=== PATIENT | female | born 1940 | race Caucasian/White ===

== ENCOUNTER 2018-04-17 13:52 | Inpatient (IN) ==
--- NOTE | 2018-04-17 14:13 | Emergency Department Note ---
Disposition Clinical Impression: Diverticulitis Abdominal pain Qualifiers: Abdominal location: left lower quadrant Qualified Code(s): R10.32 - Left lower quadrant pain Disposition: Admitted As Inpatient Condition: Undetermined Referrals: Sasha Celaya CNP [Primary Care Provider] - Forms: ED Satisfaction Letter Time of Disposition: 16:26 General Adult HPI - General Chief complaint: ED Recheck/Abnormal Lab/Rx Stated complaint: "diverticulitis sent by " Time Seen by Provider: 04/17/18 13:58 Source: patient Mode of arrival: ambulatory Limitations: no limitations Nursing Notes Reviewed: Yes Vital Signs Reviewed: Yes - History of Present Illness HPI Narrative: 78-year-old female with history of colectomy associated with colon cancer, slade fundoplication, hysterectomy, tubal ligation, arrives to the emergency department after being diagnosed 2 days ago with diverticulitis without abscess. No perforation noted. The patient was started on Cipro and Flagyl at that time. In addition the patient was diagnosed with a "bladder infection". The patient went to her primary care office today and was told to come to [facility] emergency department for admission by general surgery. The patient is complaining of left lower quadrant abdominal pain but it is not any worse than it was 2 days ago. The patient is taking a medication as prescribed. She does state that she has had some constipation since then but does note that the patient is taking oxycodone. Patient denies any nausea, vomiting, dysuria. The patient was noted by Dr. Looney in surgery to need a CT abdomen and pelvis with concern for obstruction. Pain Scale: 6 - Related Data Home Medications Medication Instructions Recorded Confirmed Biotin 1 mg PO DAILY 04/28/17 04/28/17 Cholecalciferol (Vitamin D3) 5,000 unit PO DAILY 04/28/17 04/28/17 [Vitamin D3] Colesevelam HCl [Welchol] 1,875 mg PO BID 04/28/17 04/28/17 Etodolac [Lodine] 400 mg PO TID 04/28/17 04/28/17 Levothyroxine Sodium [Levoxyl] 50 mcg PO DAILY 04/28/17 04/28/17 Lisinopril [Zestril] 20 mg PO DAILY 04/28/17 04/28/17 Meclizine [Antivert] 12.5 mg PO QID PRN 04/28/17 04/28/17 Omeprazole 41 mg PO DAILY 04/28/17 04/28/17 Trazodone HCl 200 mg PO HS 04/28/17 04/28/17 Venlafaxine XR (24 HR) [Effexor XR] 225 mg PO DAILY 04/28/17 04/28/17 Previous Rx's Medication Instructions Recorded Venlafaxine XR (24 HR) [Effexor XR] 225 mg PO DAILY #42 cap.er.24h 04/28/17 Ciprofloxacin HCl [Cipro] 500 mg PO BID #20 tablet 04/15/18 OxyCODONE/APAP 5/325 [Percocet 1 each PO Q6HR PRN 5 Days #15 04/15/18 5/325 MG] tablet metroNIDAZOLE [Flagyl] 500 mg PO TID 10 Days #30 tablet 04/15/18 Allergies Allergy/AdvReac Type Severity Reaction Status Date / Time codeine Allergy See Verified 04/28/17 10:54 Comments Sulfa (Sulfonamide Allergy Hives Verified 04/28/17 11:01 Antibiotics) All systems ED: reviewed and negative except as stated. Constitutional: Denies: fever, chills, weakness ENT ED: Denies: congestion Cardiovascular: Denies: chest pain Respiratory: Denies: dyspnea Gastrointestinal: Reports: abdominal pain, nausea, constipation. Denies: vomiting, diarrhea, hematemesis, melena, hematochezia Genitourinary: Denies: urgency, dysuria Musculoskeletal: Denies: back pain, neck pain, arthralgia, myalgia Integumentary: Denies: rash Neurological: Denies: headache Past Medical History - Past Medical History Attestation: Yes The following information was validated with the patient. 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 - Social History Smoking Status: Never smoker Smokeless Tobacco Status: No Alcohol use: Reports: none Drug use: Reports: none Physical Exam - General Limitations: no limitations General appearance: alert, in no apparent distress - Head Head exam: atraumatic, normocephalic, normal inspection - Eye Eye exam: Present: normal appearance, PERRL, EOMI - ENT ENT exam: normal exam, normal oropharynx, mucous membranes moist - Neck Neck exam: Present: normal inspection, full ROM, trachea midline - Chest Chest inspection: Present: normal inspection, symmetric chest wall rise - Respiratory Respiratory exam: Present: normal lung sounds bilaterally - Cardiovascular Cardiovascular exam: Present: regular rate, normal rhythm, normal heart sounds - Abdominal Exam Abdominal exam: Present: soft, tenderness (LLQ), scar. Absent: distention, guarding, rebound, rigidity, heel tap sign, Quintero's sign, Rovsing's sign, tenderness at McBurney's Point, pulsatile mass, hernia - Extremities Exam Extremities exam: Present: normal inspection, full ROM. Absent: tenderness, pedal edema - Neurological Exam Neurological exam: Present: alert, oriented X3 - Skin Skin exam: Present: warm, dry, intact, normal color Course Vital Signs Temperature 98.3 F 04/17/18 13:54 Pulse Rate 98 04/17/18 13:54 Respiratory Rate 18 04/17/18 13:54 Blood Pressure 113/65 04/17/18 13:54 O2 Sat by Pulse Oximetry 95 04/17/18 13:54 Temperature 98.3 F 04/17/18 14:43 Pulse Rate 98 04/17/18 14:43 Respiratory Rate 18 04/17/18 14:43 Blood Pressure 113/65 04/17/18 14:43 O2 Sat by Pulse Oximetry 95 04/17/18 14:43 Oxygen Delivery Oxygen Delivery Room Air Medical Decision Making - [facility] Narrative Medical decision making narrative: Patient's lab work demonstrates no acute process. The patient initially refused CT scan. The patient is now accepting it. After speaking with Dr. Looney in surgery he requested that we admit the patient to his service. CT is currently pending. She will be admitted at this time. - Medical Records Medical records reviewed: Yes I reviewed the patient's medical records. - Lab Data Lab results reviewed: Yes I reviewed the patient's lab results. Result diagrams: 04/17/18 14:30 04/17/18 14:30 Lab Results 04/17/18 04/17/18 Range/Units 14:30 14:30 WBC 9.9 (4.3-11.1) K/mcL RBC 4.51 (3.82-4.97) M/mcL Hgb 13.6 (11.5-15.4) g/dL Hct 40.1 (35.3-44.9) % MCV 88.9 (83.0-100.0) fL MCH 30.2 (28.0-33.3) pg MCHC 33.9 (31.6-35.5) g/dL RDW 13.8 (11.5-14.5) % Plt Count 215 (140-400) K/mcL MPV 9.7 (9.4-12.4) fL Immature Gran % 0.9 (0-4) % Seg Neutrophils % 62.2 % Lymphocytes % 23.9 % Monocytes % 9.4 % Eosinophils % 3.0 % Basophils % 0.6 % Neutrophils # 6.2 (1.6-8.9) K/mcL Lymphocytes # 2.4 (0.6-4.6) K/mcL Monocytes # 0.9 (0.0-1.3) K/mcL Eosinophils # 0.3 (0.0-0.6) K/mcL Basophils # 0.1 (0.0-0.2) K/mcL Sodium 136 (136-145) mEq/L Potassium 4.0 (3.5-5.1) mEq/L Chloride 103 (98-107) mEq/L Carbon Dioxide 23 (23-29) mEq/L BUN 11 (8-23) mg/dL Creatinine 0.88 (0.60-1.20) mg/dL Est GFR ( Amer) > 60 (> 60) Est GFR (Non-Af Amer) > 60 (> 60) BUN/Creatinine Ratio 13 (6-26) Glucose 96 (70-105) mg/dL Calculated Osmolality 281 (280-300) Calcium 9.2 (8.6-10.3) mg/dL - EKG Data EKG #1 EKG attestation: Yes I reviewed and interpreted this EKG. EKG results narrative: Heart rate 84 beats for minute. Normal sinus rhythm. No ST elevation or ST depression noted.
[2018-04-17] MEDS ORDERED: Isovue-370 500 ML INFUS..BTL IV ONE ×2 (14:15→18:58)
--- NOTE | 2018-04-17 14:18 | Emergency Department Note ---
Disposition Clinical Impression: Diverticulitis Abdominal pain Qualifiers: Abdominal location: left lower quadrant Qualified Code(s): R10.32 - Left lower quadrant pain Disposition: Admitted As Inpatient Condition: Undetermined General Adult HPI - General Chief complaint: ED Recheck/Abnormal Lab/Rx Stated complaint: "diverticulitis sent by " Time Seen by Provider: 04/17/18 13:58 - History of Present Illness Pain Scale: 6 - Related Data Home Medications Medication Instructions Recorded Confirmed Biotin 1 mg PO DAILY 04/28/17 04/17/18 Cholecalciferol (Vitamin D3) 5,000 unit PO DAILY 04/28/17 04/17/18 [Vitamin D3] Colesevelam HCl [Welchol] 1,875 mg PO BID 04/28/17 04/17/18 Levothyroxine Sodium [Levoxyl] 50 mcg PO DAILY 04/28/17 04/17/18 Lisinopril [Zestril] 20 mg PO DAILY 04/28/17 04/17/18 Trazodone HCl 200 mg PO HS 04/28/17 04/17/18 Previous Rx's Medication Instructions Recorded Venlafaxine XR (24 HR) [Effexor XR] 225 mg PO DAILY #42 cap.er.24h 04/28/17 Allergies Allergy/AdvReac Type Severity Reaction Status Date / Time codeine Allergy See Verified 04/28/17 10:54 Comments Sulfa (Sulfonamide Allergy Hives Verified 04/28/17 11:01 Antibiotics) Past Medical History - Past Medical History Medical history: Reports: GERD, hypertension Psychiatric history: Reports: depression - Social History Smoking Status: Never smoker Smokeless Tobacco Status: No Alcohol use: Reports: none Drug use: Reports: none Course Vital Signs Temperature 98.3 F 04/17/18 13:54 Pulse Rate 98 04/17/18 13:54 Respiratory Rate 18 04/17/18 13:54 Blood Pressure 113/65 04/17/18 13:54 O2 Sat by Pulse Oximetry 95 04/17/18 13:54 Temperature 98.3 F 04/17/18 14:43 Pulse Rate 98 04/17/18 14:43 Respiratory Rate 18 04/17/18 17:13 Blood Pressure 160/88 04/17/18 17:13 O2 Sat by Pulse Oximetry 95 04/17/18 14:43 Oxygen Delivery Oxygen Delivery Room Air Medical Decision Making - Lab Data Result diagrams: 04/17/18 14:30 04/17/18 14:30 Lab Results 04/17/18 04/17/18 Range/Units 14:30 14:30 WBC 9.9 (4.3-11.1) K/mcL RBC 4.51 (3.82-4.97) M/mcL Hgb 13.6 (11.5-15.4) g/dL Hct 40.1 (35.3-44.9) % MCV 88.9 (83.0-100.0) fL MCH 30.2 (28.0-33.3) pg MCHC 33.9 (31.6-35.5) g/dL RDW 13.8 (11.5-14.5) % Plt Count 215 (140-400) K/mcL MPV 9.7 (9.4-12.4) fL Immature Gran % 0.9 (0-4) % Seg Neutrophils % 62.2 % Lymphocytes % 23.9 % Monocytes % 9.4 % Eosinophils % 3.0 % Basophils % 0.6 % Neutrophils # 6.2 (1.6-8.9) K/mcL Lymphocytes # 2.4 (0.6-4.6) K/mcL Monocytes # 0.9 (0.0-1.3) K/mcL Eosinophils # 0.3 (0.0-0.6) K/mcL Basophils # 0.1 (0.0-0.2) K/mcL Sodium 136 (136-145) mEq/L Potassium 4.0 (3.5-5.1) mEq/L Chloride 103 (98-107) mEq/L Carbon Dioxide 23 (23-29) mEq/L BUN 11 (8-23) mg/dL Creatinine 0.88 (0.60-1.20) mg/dL Est GFR ( Amer) > 60 (> 60) Est GFR (Non-Af Amer) > 60 (> 60) BUN/Creatinine Ratio 13 (6-26) Glucose 96 (70-105) mg/dL Calculated Osmolality 281 (280-300) Calcium 9.2 (8.6-10.3) mg/dL Attestation Statement - Attestation Attestation: I examined this patient and my medical decision-making was reviewed with the MINT WAFER DEPOSITOR/PA/Advanced Practice Nurse/Resident Physician. I agree with the documented findings, disposition and treatment plan as described except to the extent set forth below. The patient has left lower quadrant pain and had a CT scan 2 days ago showed diverticulitis without perforation and I did review the CT scan report. I did see the patient spoke with her and examined her and does have moderate left lower quadrant pain but soft and the patient has been using ciprofloxacin and Flagyl. Discussion with Dr. Saldivar we will get a oral and IV contrast CT scan here and patient will be reassessed after the results of the scan and laboratory evaluation. She is ambulatory and nontoxic in appearance. 1420 I did review the patient's EKG showing normal sinus rhythm with a rate of 84 and without acute ischemic change 1458
[2018-04-17 15:11] LABS: Basophils # 0.1 K/mcL (0.0-0.2); Basophils % 0.6 %; Eosinophils # 0.3 K/mcL (0.0-0.6); Hematocrit 40.1 % (35.3-44.9); Hemoglobin 13.6 g/dL (11.5-15.4); Immature Granulocytes % 0.9 % (0-4); Lymphocytes # 2.4 K/mcL (0.6-4.6); Lymphocytes % 23.9 %; Mean Corpuscular HGB Conc 33.9 g/dL (31.6-35.5); Mean Corpuscular Hemoglobin 30.2 pg (28.0-33.3); Mean Corpuscular Volume 88.9 fL (83.0-100.0); Mean Platelet Volume 9.7 fL (9.4-12.4); Monocytes # 0.9 K/mcL (0.0-1.3); Monocytes % 9.4 %; Neutrophils # 6.2 K/mcL (1.6-8.9); Platelet Count 215 K/mcL (140-400); Red Blood Count 4.51 M/mcL (3.82-4.97); Red Cell Distribution Width 13.8 % (11.5-14.5); Segmented Neutrophils % 62.2 %
[2018-04-17 15:29] LABS: BUN/Creatinine Ratio 13 (6-26); Blood Urea Nitrogen 11 mg/dL (8-23); Calcium 9.2 mg/dL (8.6-10.3); Carbon Dioxide 23 mEq/L (23-29); Chloride 103 mEq/L (98-107); Glucose 96 mg/dL (70-105); Osmolality,Calculated 281 (280-300); Sodium 136 mEq/L (136-145); eGFR For African Americans > 60 (> 60); eGFR For Non-African Americans > 60 (> 60)
--- NOTE | 2018-04-17 16:52 | General Surg History&Physical ---
Date of Encounter: 04/17/18 Time of Encounter: 16:51 Assessment and Plan (1) Diverticulitis Current Visit: Yes Status: Acute 78F with Hinchey class I diverticulitis; non septic; NPO IVF abx repeat CT scan to assess for progression no acute surgery at present; The assessment and plan as outlined above was discussed with the patient and/or family members who expressed understanding and agreement. All questions were answered. History of Present Illness Chief complaint: abdominal pain HPI: Ms. Mckeon is a 78 year old female h/o GERD, HTN, prior colon cancer s/p resection; s/p slade s/p hysterectomy and tubal ligation who presents with 2- 3 day history of abdominal pain. patient states that she has had episodes similar to this in the past, but this is by far the worst episode. per the patient, the pain 'knocked her to her knees" The pain is localized to the LLQ with associated nausea and anorexia. No reports of fevers, chills, chest pain nor shortness of breath. She was started on appropriate outpatient antibiotics two days ago, but presents to the ED with continued pain; She did have a CT scan, which was reviewed and interpreted by me, which demonstrated diverticulosis with associated inflammation and edema, but no abscess nor free air. Past Med Surg Social Fam HX - Past Medical History Medical history: GERD, hypertension, other (hypothyroidism) Additional medical history: episodes of dizziness Psychiatric history: depression - Past Surgical History Surgical History: colectomy, hysterectomy Additional surgical history: COLON RESECTION - Social History Smoking Status: Never smoker Smokeless Tobacco Status: No Alcohol use: none Drug use: none - Additional Family History Additional family history: non contributory Medications and Allergies Biotin 1 mg PO DAILY 04/28/17 [History] Cholecalciferol (Vitamin D3) [Vitamin D3] 5,000 unit PO DAILY 04/28/17 [History] Colesevelam HCl [Welchol] 1,875 mg PO BID 04/28/17 [History] Levothyroxine Sodium [Levoxyl] 50 mcg PO DAILY 04/28/17 [History] Lisinopril [Zestril] 20 mg PO DAILY 04/28/17 [History] Trazodone HCl 200 mg PO HS 04/28/17 [History] Venlafaxine XR (24 HR) [Effexor XR] 225 mg PO DAILY #42 cap.er.24h 04/28/17 [Rx] 3 Allergy/AdvReac Type Severity Reaction Status Date / Time codeine Allergy See Verified 04/28/17 10:54 Comments Sulfa (Sulfonamide Allergy Hives Verified 04/28/17 11:01 Antibiotics) Review of Systems All systems PM: The remainder of the systems were reviewed and are negative General Surgery Exam Initial Vital Signs Temp Pulse Resp BP Pulse Ox 98.3 F 98 18 113/65 95 04/17/18 13:54 04/17/18 13:54 04/17/18 13:54 04/17/18 13:54 04/17/18 13:54 - General physical appearance no distress - Eyes normal ocular movement - ENT normocephalic - Neck no lymphadectomy - Respiratory normal expansion, normal respiratory effort - Cardiovascular Cardiovascular exam: Present: RRR - Abdomen Abdomen general surgery: Present: soft, tender, surgical scars Abdominal Tenderness: Present: LLQ (non peritoneal) - Integumentary Integumentary general surgery: Present: warm and dry - Neurologic Present: CN 2-12 grossly intact - Musculoskeletal Present: normal posture - Psychiatric Psychiatric general surgery: Present: A&Ox3 Results - Labs 04/17/18 14:30 04/17/18 14:30 Diabetes panel 04/17/18 Range/Units 14:30 Sodium 136 (136-145) mEq/L Potassium 4.0 (3.5-5.1) mEq/L Chloride 103 (98-107) mEq/L Carbon Dioxide 23 (23-29) mEq/L BUN 11 (8-23) mg/dL Creatinine 0.88 (0.60-1.20) mg/dL Glucose 96 (70-105) mg/dL Calcium 9.2 (8.6-10.3) mg/dL Calcium panel 04/17/18 Range/Units 14:30 Calcium 9.2 (8.6-10.3) mg/dL Pituitary panel 04/17/18 Range/Units 14:30 Sodium 136 (136-145) mEq/L Potassium 4.0 (3.5-5.1) mEq/L Chloride 103 (98-107) mEq/L Carbon Dioxide 23 (23-29) mEq/L BUN 11 (8-23) mg/dL Creatinine 0.88 (0.60-1.20) mg/dL Glucose 96 (70-105) mg/dL Calcium 9.2 (8.6-10.3) mg/dL Adrenal panel 04/17/18 Range/Units 14:30 Sodium 136 (136-145) mEq/L Potassium 4.0 (3.5-5.1) mEq/L Chloride 103 (98-107) mEq/L Carbon Dioxide 23 (23-29) mEq/L BUN 11 (8-23) mg/dL Creatinine 0.88 (0.60-1.20) mg/dL Glucose 96 (70-105) mg/dL Calcium 9.2 (8.6-10.3) mg/dL All other labs normal. - Imaging CT scan - abdomen: report reviewed, image reviewed CT scan - pelvis: report reviewed, image reviewed
[2018-04-17] MEDS ORDERED: Ondansetron ODT 4 MG TAB.RAPDIS SL PRN (17:00)
[2018-04-17] MEDS: 0.9 % Sodium Chloride 1,000 ML IVC SCH (18:10)
[2018-04-17] MEDS: OXYCODONE Oral CONC 10 MG/0.5 ML ORAL.SYG SL PRN (18:16)
[2018-04-18] MEDS: Piperacillin/Tazobactam 3.375 GM in 0.9 % Sodium Chloride Mini Bag 100 ML IVPB SCH ×3 (00:02→16:51)
[2018-04-18] MEDS: OXYCODONE Oral CONC 10 MG/0.5 ML ORAL.SYG SL PRN (00:03)
[2018-04-18 01:55] LABS: Basophils # 0.1 K/mcL (0.0-0.2); Basophils % 0.9 %; Eosinophils # 0.3 K/mcL (0.0-0.6); Hematocrit 38.5 % (35.3-44.9); Immature Granulocytes % 1.2 % (0-4); Lymphocytes # 1.7 K/mcL (0.6-4.6); Lymphocytes % 21.3 %; Mean Corpuscular HGB Conc 33.8 g/dL (31.6-35.5); Mean Corpuscular Hemoglobin 29.3 pg (28.0-33.3); Mean Corpuscular Volume 86.9 fL (83.0-100.0); Mean Platelet Volume 9.7 fL (9.4-12.4); Monocytes # 0.7 K/mcL (0.0-1.3); Monocytes % 9.1 %; Neutrophils # 5.2 K/mcL (1.6-8.9); Platelet Count 215 K/mcL (140-400); Red Blood Count 4.43 M/mcL (3.82-4.97); Red Cell Distribution Width 13.7 % (11.5-14.5); Segmented Neutrophils % 63.5 %
[2018-04-18] MEDS: 0.9 % Sodium Chloride 1,000 ML IVC SCH (05:30)
[2018-04-18] MEDS: *HR* Enoxaparin 40 MG/0.4 ML SYRINGE SQ SCH (05:31)
[2018-04-18] MEDS: Acetaminophen/Aspirin/Caffeine TABLET PO PRN (10:44)
[2018-04-18] MEDS ORDERED: Potassium Chloride 40 MEQ in D5% in 0.45% NACL 1,000 ML IVC SCH (10:45)
[2018-04-18] MEDS ORDERED: D5% in 0.45% NACL w KCl 20 MEQ/1,000 ML MLS IVC SCH (10:45)
--- NOTE | 2018-04-18 11:34 | General Surgery Progress Note ---
Date of Encounter: 04/18/18 Time of Encounter: 11:33 - Assessment and Plan (1) Diverticulitis Current Visit: Yes Status: Acute 78F with persistent diverticulitis; non septic cont abx okay for ice chips activity as tolerated will reassess in AM; possible diet in AM Subjective Patient reports: no new complaints, feels better, still having pain, pain is less Objective Vital Signs - Last 8 Hours Temp Pulse Resp BP Pulse Ox 04/18/18 11:06 98.4 F 77 14 149/83 93 04/18/18 06:36 97.9 F 76 16 132/73 92 Intake and Output 04/17/18 04/18/18 04/18/18 23:59 07:59 15:59 Intake Total 0 / 0 900 / 900 100 / 100 Output Total 0 / 0 0 / 0 700 / 700 Balance 0 / 0 900 / 900 -600 / -600 Intake: IV Fluids 900 / 900 100 / 100 0.9 % Sodium Chloride 1,000 ML 800 / 800 @ 125 mls/hr IVC .Q8H [facility] Rx#: [id number] Zosyn 3.375 GM In 0.9 % Sodium 100 / 100 100 / 100 Chloride (Mini-Bag +) 100 ML @ 25 mls/hr IVPB Q8HR [facility] Rx#: [id number] Oral 0 / 0 0 / 0 Output: Urine 0 / 0 0 / 0 700 / 700 Other: Meal NPO for breakfast # Voids 1 Weight 73.2 kg Blood Glucose* 105 96 117 Patient Weight 04/18/18 23:59 Weight 73.2 kg - General physical appearance no distress - Respiratory normal expansion, normal respiratory effort - Cardiovascular Cardiovascular exam: Present: RRR - Abdomen Abdomen: Present: soft, tender Abdominal Tenderness: LLQ - Neurologic CN 2-12 grossly intact - Musculoskeletal normal posture - Psychiatric oriented to time, oriented to person, oriented to place - Labs 04/18/18 01:38 04/17/18 14:30 Consult Discharge Plan - Plan Referrals: Sasha Celaya, SHIPPING AND RECEIVING ASSISTANT [Primary Care Provider] -
[2018-04-18 13:23] LABS: BUN/Creatinine Ratio 11 (6-26); Blood Urea Nitrogen 9 mg/dL (8-23); Calcium 8.9 mg/dL (8.6-10.3); Carbon Dioxide 25 mEq/L (23-29); Chloride 105 mEq/L (98-107); Glucose 118 mg/dL (70-105); Osmolality,Calculated 286 (280-300); Phosphorous 2.8 mg/dL (2.7-4.5); Potassium 4.1 mEq/L (3.5-5.1); Sodium 138 mEq/L (136-145); eGFR For African Americans > 60 (> 60); eGFR For Non-African Americans > 60 (> 60)
[2018-04-18] MEDS: Venlafaxine XR (24 HR) 75 MG CAP.ER.24H PO SCH (14:10)
[2018-04-18] MEDS: Lisinopril 20 MG TABLET PO SCH (14:11)
[2018-04-18] MEDS: 0.9 % Sodium Chloride w KCl 20 MEQ/1,000 ML MLS IVC SCH (21:10)
[2018-04-18] MEDS: traZODone 50 MG TABLET PO SCH (21:37)
[2018-04-19] MEDS: Piperacillin/Tazobactam 3.375 GM in 0.9 % Sodium Chloride Mini Bag 100 ML IVPB SCH ×3 (00:42→17:02)
[2018-04-19] MEDS: 0.9 % Sodium Chloride w KCl 20 MEQ/1,000 ML MLS IVC SCH ×2 (04:38→15:21)
[2018-04-19 04:59] LABS: Basophils # 0.1 K/mcL (0.0-0.2); Basophils % 0.8 %; Eosinophils # 0.3 K/mcL (0.0-0.6); Eosinophils % 3.9 %; Hematocrit 39.6 % (35.3-44.9); Hemoglobin 13.3 g/dL (11.5-15.4); Immature Granulocytes % 0.5 % (0-4); Lymphocytes # 1.2 K/mcL (0.6-4.6); Lymphocytes % 19.1 %; Mean Corpuscular HGB Conc 33.6 g/dL (31.6-35.5); Mean Corpuscular Hemoglobin 29.8 pg (28.0-33.3); Mean Corpuscular Volume 88.8 fL (83.0-100.0); Mean Platelet Volume 9.7 fL (9.4-12.4); Monocytes # 0.7 K/mcL (0.0-1.3); Neutrophils # 4.2 K/mcL (1.6-8.9); Platelet Count 222 K/mcL (140-400); Red Blood Count 4.46 M/mcL (3.82-4.97); Red Cell Distribution Width 13.4 % (11.5-14.5); Segmented Neutrophils % 64.7 %
[2018-04-19 05:21] LABS: BUN/Creatinine Ratio 11 (6-26); Blood Urea Nitrogen 8 mg/dL (8-23); Calcium 8.8 mg/dL (8.6-10.3); Carbon Dioxide 25 mEq/L (23-29); Chloride 109 mEq/L (98-107); Glucose 92 mg/dL (70-105); Osmolality,Calculated 288 (280-300); Sodium 140 mEq/L (136-145); eGFR For African Americans > 60 (> 60); eGFR For Non-African Americans > 60 (> 60)
[2018-04-19] MEDS: *HR* Enoxaparin 40 MG/0.4 ML SYRINGE SQ SCH (06:07)
[2018-04-19] MEDS: Venlafaxine XR (24 HR) 75 MG CAP.ER.24H PO SCH (08:50)
[2018-04-19] MEDS: Lisinopril 20 MG TABLET PO SCH (08:50)
--- NOTE | 2018-04-19 11:48 | General Surgery Progress Note ---
<Yovani Waters R - Last Filed: 04/19/18 11:46> Date of Encounter: 04/19/18 Time of Encounter: 07:40 - Assessment and Plan (1) Diverticulitis Current Visit: Yes Status: Acute Pain improving. No leukocytosis. Afebrile. PLAN: Continue antibiotics Continue IV fluids- may decrease if able to tolerate PO intake Activity as tolerated Advance diet - clears today DVT prophylaxis - Lovenox Labs in AM (2) Hypertension Current Visit: Yes Status: Acute Controlled. Continue home Lisinopril Qualifiers: Hypertension type: essential hypertension Qualified Code(s): I10 - Essential (primary) hypertension (3) Hypothyroidism Current Visit: Yes Status: Acute Continue home synthroid Qualifiers: Hypothyroidism type: unspecified Qualified Code(s): E03.9 - Hypothyroidism , unspecified (4) Depression Current Visit: Yes Status: Acute Continue home meds Qualifiers: Depression Type: unspecified Qualified Code(s): F32.9 - Major depressive disorder, single episode, unspecified Subjective Patient reports: no new complaints, feels better, pain is less, voiding w/o difficulty, flatus, bowel movement, afebrile Narrative: Reports her pain continues to improve and that she is feeling better. No N/V. Ready to try diet today. Objective Vital Signs - Last 8 Hours Temp Pulse Resp BP Pulse Ox 04/19/18 11:08 97.7 F 76 16 133/77 96 04/19/18 07:10 98.6 F 73 16 126/76 95 04/19/18 04:07 98.1 F 80 16 132/68 92 Intake and Output 04/18/18 04/19/18 04/19/18 23:59 07:59 15:59 Intake Total 1100 / 1100 1100 / 1100 Output Total 600 / 600 400 / 400 300 / 300 Balance 500 / 500 700 / 700 -300 / -300 Intake: IV Fluids 1100 / 1100 1100 / 1100 KCl 20 mEq in 0.9% Sodium 1000 / 1000 Chloride 20 meq In 1,000 ml @ 100 mls/hr IVC .Q10H [facility] Rx#: [id number] KCl 20mEq IN D5%-0.45 NACL 20 1000 / 1000 meq In 1,000 ml @ 100 mls/hr IVC .Q10H [facility] Rx#:[id number] Zosyn 3.375 GM In 0.9 % Sodium 100 / 100 100 / 100 Chloride (Mini-Bag +) 100 ML @ 25 mls/hr IVPB Q8HR [facility] Rx#: [id number] Output: Urine 600 / 600 400 / 400 300 / 300 Other: Meal npo dinner # Voids 1 Blood Glucose* 96 88 - General physical appearance well developed, well nourished, no distress - Eyes normal ocular movement - Respiratory normal expansion, normal respiratory effort, clear to auscultation - Cardiovascular Cardiovascular exam: Present: RRR - Abdomen Abdomen: Present: bowel sounds present, soft, tender (mild tenderness in LLQ) - Integumentary no rash, no abnormal pigmentation - Neurologic CN 2-12 grossly intact - Psychiatric oriented to time, oriented to person, oriented to place, speech is normal, memory intact - Labs 04/19/18 04:20 04/19/18 04:20 Diabetes panel 04/18/18 04/19/18 Range/Units 12:29 04:20 Sodium 138 140 (136-145) mEq/L Potassium 4.1 4.0 (3.5-5.1) mEq/L Chloride 105 109 H (98-107) mEq/L Carbon Dioxide 25 25 (23-29) mEq/L BUN 9 8 (8-23) mg/dL Creatinine 0.83 0.70 (0.60-1.20) mg/dL Glucose 118 H 92 (70-105) mg/dL Calcium 8.9 8.8 (8.6-10.3) mg/dL Calcium panel 04/18/18 04/19/18 Range/Units 12:29 04:20 Calcium 8.9 8.8 (8.6-10.3) mg/dL Phosphorus 2.8 3.0 (2.7-4.5) mg/dL Pituitary panel 04/18/18 04/19/18 Range/Units 12:29 04:20 Sodium 138 140 (136-145) mEq/L Potassium 4.1 4.0 (3.5-5.1) mEq/L Chloride 105 109 H (98-107) mEq/L Carbon Dioxide 25 25 (23-29) mEq/L BUN 9 8 (8-23) mg/dL Creatinine 0.83 0.70 (0.60-1.20) mg/dL Glucose 118 H 92 (70-105) mg/dL Calcium 8.9 8.8 (8.6-10.3) mg/dL Adrenal panel 04/18/18 04/19/18 Range/Units 12:29 04:20 Sodium 138 140 (136-145) mEq/L Potassium 4.1 4.0 (3.5-5.1) mEq/L Chloride 105 109 H (98-107) mEq/L Carbon Dioxide 25 25 (23-29) mEq/L BUN 9 8 (8-23) mg/dL Creatinine 0.83 0.70 (0.60-1.20) mg/dL Glucose 118 H 92 (70-105) mg/dL Calcium 8.9 8.8 (8.6-10.3) mg/dL Consult Discharge Plan - Plan Referrals: Sasha Celaya CNP [Primary Care Provider] - <Alex Looney - Last Filed: 04/19/18 12:51> Date of Encounter: 04/19/18 - Assessment and Plan (1) Diverticulitis Current Visit: Yes Status: Acute Objective Vital Signs - Last 8 Hours Temp Pulse Resp BP Pulse Ox 04/19/18 11:08 97.7 F 76 16 133/77 96 04/19/18 07:10 98.6 F 73 16 126/76 95 Intake and Output 04/18/18 04/19/18 04/19/18 23:59 07:59 15:59 Intake Total 1100 / 1100 1100 / 1100 600 / 600 Output Total 600 / 600 400 / 400 300 / 300 Balance 500 / 500 700 / 700 300 / 300 Intake: IV Fluids 1100 / 1100 1100 / 1100 KCl 20 mEq in 0.9% Sodium 1000 / 1000 Chloride 20 meq In 1,000 ml @ 100 mls/hr IVC .Q10H [facility] Rx#: [id number] KCl 20mEq IN D5%-0.45 NACL 20 1000 / 1000 meq In 1,000 ml @ 100 mls/hr IVC .Q10H [facility] Rx#:[id number] Zosyn 3.375 GM In 0.9 % Sodium 100 / 100 100 / 100 Chloride (Mini-Bag +) 100 ML @ 25 mls/hr IVPB Q8HR [facility] Rx#: [id number] Oral 600 / 600 Output: Urine 600 / 600 400 / 400 300 / 300 Other: Meal npo dinner Breakfast # Voids 1 Blood Glucose* 96 88 - Labs 04/19/18 04:20 04/19/18 04:20 Diabetes panel 04/18/18 04/19/18 Range/Units 12:29 04:20 Sodium 138 140 (136-145) mEq/L Potassium 4.1 4.0 (3.5-5.1) mEq/L Chloride 105 109 H (98-107) mEq/L Carbon Dioxide 25 25 (23-29) mEq/L BUN 9 8 (8-23) mg/dL Creatinine 0.83 0.70 (0.60-1.20) mg/dL Glucose 118 H 92 (70-105) mg/dL Calcium 8.9 8.8 (8.6-10.3) mg/dL Calcium panel 04/18/18 04/19/18 Range/Units 12:29 04:20 Calcium 8.9 8.8 (8.6-10.3) mg/dL Phosphorus 2.8 3.0 (2.7-4.5) mg/dL Pituitary panel 04/18/18 04/19/18 Range/Units 12:29 04:20 Sodium 138 140 (136-145) mEq/L Potassium 4.1 4.0 (3.5-5.1) mEq/L Chloride 105 109 H (98-107) mEq/L Carbon Dioxide 25 25 (23-29) mEq/L BUN 9 8 (8-23) mg/dL Creatinine 0.83 0.70 (0.60-1.20) mg/dL Glucose 118 H 92 (70-105) mg/dL Calcium 8.9 8.8 (8.6-10.3) mg/dL Adrenal panel 04/18/18 04/19/18 Range/Units 12:29 04:20 Sodium 138 140 (136-145) mEq/L Potassium 4.1 4.0 (3.5-5.1) mEq/L Chloride 105 109 H (98-107) mEq/L Carbon Dioxide 25 25 (23-29) mEq/L BUN 9 8 (8-23) mg/dL Creatinine 0.83 0.70 (0.60-1.20) mg/dL Glucose 118 H 92 (70-105) mg/dL Calcium 8.9 8.8 (8.6-10.3) mg/dL - Attending Attestation I have personally seen and examined the patient. I have reviewed pertinent labs , imaging, progress notes, including this one. I agree with the above assessment and plan and wish to include the following... advance to clears today; will advance diet again on 04/20 DO NOT draw labs for 04/20
[2018-04-19] MEDS: Acetaminophen/Aspirin/Caffeine TABLET PO PRN (12:08)
[2018-04-19] MEDS: traZODone 50 MG TABLET PO SCH (21:21)
[2018-04-20] MEDS: 0.9 % Sodium Chloride w KCl 20 MEQ/1,000 ML MLS IVC SCH (01:31)
[2018-04-20] MEDS: Piperacillin/Tazobactam 3.375 GM in 0.9 % Sodium Chloride Mini Bag 100 ML IVPB SCH ×2 (01:54→09:15)
[2018-04-20] MEDS: *HR* Enoxaparin 40 MG/0.4 ML SYRINGE SQ SCH (05:26)
--- NOTE | 2018-04-20 09:12 | Electrocardiograph Report ---
[address] [address] Test Date: 2018-04-17 Pat Name: Nicolasa Mckeon Department: 102 Room: 3A63 Gender: F Sorter Packer: Aakash : 1940 Requested By: Alin Whitfield Order Number: [id number] Reading MD: Quintin Zhang Measurements Intervals [place] Rate: 84 P: 17 [place]: 192 QRS: -35 QRSD: 83 T: 31 QT: 374 QTc: 415 Interpretive Statements SINUS RHYTHM MARKED LEFT AXIS DEVIATION LOW QRS VOLTAGE IN PRECORDIAL LEADS MODERATE VOLTAGE CRITERIA FOR LVH, CONSIDER NORMAL VARIANT Electronically Signed On 04-20-2018 9:10:39 EDT by Quintin Zhang
[2018-04-20] MEDS: Venlafaxine XR (24 HR) 75 MG CAP.ER.24H PO SCH (09:19)
[2018-04-20] MEDS: Lisinopril 20 MG TABLET PO SCH (09:19)
--- NOTE | 2018-04-20 09:23 | General Surgery Progress Note ---
Date of Encounter: 04/20/18 Time of Encounter: 09:20 - Assessment and Plan (1) Diverticulitis Current Visit: Yes Status: Acute 78F with persistent diverticulitis; non septic; return of bowel function; tolerating diet SLIV transition to PO abx (levaquin, flagyl) advance diet d/c today follow up with me in clinic next week Subjective Patient reports: no new complaints, feels better, still having pain, pain is less, tolerating liquids well, flatus, bowel movement, afebrile Objective Vital Signs - Last 8 Hours Temp Pulse Resp BP Pulse Ox 04/20/18 06:42 98.0 F 68 15 150/83 93 04/20/18 04:20 97.9 F 70 14 129/72 94 Intake and Output 04/19/18 04/20/18 04/20/18 23:59 07:59 15:59 Intake Total 1420 / 1420 1100 / 1100 Output Total 300 / 300 1900 / 1900 Balance 1120 / 1120 -800 / -800 Intake: IV Fluids 100 / 100 1100 / 1100 KCl 20 mEq in 0.9% Sodium 1000 / 1000 Chloride 20 meq In 1,000 ml @ 100 mls/hr IVC .Q10H SONJA Rx#: [id number] Zosyn 3.375 GM In 0.9 % Sodium 100 / 100 100 / 100 Chloride (Mini-Bag +) 100 ML @ 25 mls/hr IVPB Q8HR SONJA Rx#: [id number] Oral 1320 / 1320 0 / 0 Output: Urine 300 / 300 1900 / 1900 Other: Meal Dinner Weight 73 kg Patient Weight 04/20/18 23:59 Weight 73 kg - General physical appearance no distress - Respiratory normal expansion, normal respiratory effort - Cardiovascular Cardiovascular exam: Present: RRR - Abdomen Abdomen: Present: soft, tender Abdominal Tenderness: LLQ - Neurologic CN 2-12 grossly intact - Musculoskeletal normal posture - Labs 04/19/18 04:20 04/19/18 04:20 Consult Discharge Plan - Plan Referrals: Sasha Celaya, COUNTRY MANAGER [Primary Care Provider] -
[2018-04-20] MEDS ORDERED: metroNIDAZOLE 500 MG TABLET PO SCH (09:30)
[2018-04-20] MEDS ORDERED: levoFLOXacin 750 MG TABLET PO SCH (09:30)
--- NOTE | 2018-04-20 09:58 | Discharge Summary ---
<Laya Simon - Last Filed: 04/20/18 09:54> Date of Encounter: 04/20/18 Time of Encounter: 10:00 - Discharge Diagnosis (1) Diverticulitis Priority: Primary Status: Acute (2) Abdominal pain Priority: Secondary Status: Acute Qualifiers: Abdominal location: left lower quadrant Qualified Code(s): R10.32 - Left lower quadrant pain General Surgery Exam Initial Vital Signs Temp Pulse Resp BP Pulse Ox 98.3 F 98 18 113/65 95 04/17/18 13:54 04/17/18 13:54 04/17/18 13:54 04/17/18 13:54 04/17/18 13:54 No changes from attending examination - Hospital Course Hospital course: Ms. Mckeon is a 78 year old female who presented on 04/17/2018 with complaints of abdominal discomfort. She was noted to have acute persistent diverticulitis. She was treated conservatively with bowel rest and IV antibiotics. Her abdominal discomfort has improved and she is tolerating a diet. She is afebrile and her vital signs are stable. We'll begin discharge planning to home with a follow-up with Dr. Looney in one week. She will be transitioned on PO Cipro and Flagyl for 10 days. - Time Spent with Patient Total time spent providing and/or coordinating discharge services: - Discharge Medications Prescriptions: Ondansetron ODT [Zofran ODT] 4 mg SL Q4HR #30 tab.rapdis Ciprofloxacin [Cipro] 500 mg PO BID #20 tablet metroNIDAZOLE [Flagyl] 500 mg PO TID #30 tablet Home Medications: Biotin 1 mg PO DAILY 04/28/17 [History] Cholecalciferol (Vitamin D3) [Vitamin D3] 5,000 unit PO DAILY 04/28/17 [History] Colesevelam HCl [Welchol] 1,875 mg PO BID 04/28/17 [History] Levothyroxine Sodium [Levoxyl] 50 mcg PO DAILY 04/28/17 [History] Lisinopril [Zestril] 20 mg PO DAILY 04/28/17 [History] Trazodone HCl 200 mg PO HS 04/28/17 [History] Venlafaxine XR (24 HR) [Effexor XR] 225 mg PO DAILY #42 cap.er.24h 04/28/17 [Rx] Ciprofloxacin [Cipro] 500 mg PO BID #20 tablet 04/20/18 [Rx] Ondansetron ODT [Zofran ODT] 4 mg SL Q4HR #30 tab.rapdis 04/20/18 [Rx] metroNIDAZOLE [Flagyl] 500 mg PO TID #30 tablet 04/20/18 [Rx] Allergies/Adverse Reactions: 3 Allergy/AdvReac Type Severity Reaction Status Date / Time codeine Allergy See Verified 04/28/17 10:54 Comments Sulfa (Sulfonamide Allergy Hives Verified 04/28/17 11:01 Antibiotics) Date of admission: 04/17/18 17:00 Primary care physician: Sasha Celaya CNP Discharging clinician: Alex Looney (Alejandro Simon) Anticipated date of discharge: 04/20/18 Labs on day of discharge: Labs from last 24 hours 04/18/18 04/18/18 04/18/18 23:46 17:05 11:11 POC Glucose 96 105 H 117 H - Impressions ITS Impressions Abdomen/Pelvis CT 04/17/18 18:00 IMPRESSION: 1. Findings compatible with acute proximal sigmoid diverticulitis with fat stranding without organized phlegmon or abscess. 1. Trace pelvic fluid. 2. Other incidental findings as above. D/ / Ghazala Keller MD / Ghazala Keller MD Interpreting Provider: Ghazala Keller MD - Patient Status Disposition: Home, Self-Care Condition: Undetermined Functional capacity at discharge: independent ambulation Overall status at discharge: patient is back to baseline - Discharge Instructions Instructions: Low Fiber Diet (GEN), Diverticulitis Diet (DC) Follow Up With: Sasha Celaya CNP [Primary Care Provider] - Alex Looney MD [Non-Partnered Physician] - 04/27/18 11:00 am Additional Instructions: Follow a low fiber diet until your acute symptoms are resolved (at least two weeks) Take your antibiotics as directed. Do not stop antibiotics without talking to your provider Do not drink any alcohol while taking metronidazole. Drinking alcohol while taking metronidazole can cause violent vomiting and abdominal pain. Refrain from drinking alcohol for 48 hours after completing metronidazole. Follow-up with Dr. Looney as directed. Return to the hospital for return of presenting symptoms, increase in abdominal discomfort and fevers greater than 100.5, black bloody or tarry stool. - Diet and Activity Activity: increase activity as tolerated Diet: other (Low fiber diet for 2 weeks; then diverticulitis diet) <Alex Looney - Last Filed: 04/20/18 11:00> Date of Encounter: 04/20/18 - Discharge Diagnosis (1) Diverticulitis Status: Acute General Surgery Exam Initial Vital Signs Temp Pulse Resp BP Pulse Ox 98.3 F 98 18 113/65 95 04/17/18 13:54 04/17/18 13:54 04/17/18 13:54 04/17/18 13:54 04/17/18 13:54 - Hospital Course Hospital course: Ms. Mckeon is a 78 year old female - Time Spent with Patient Total time spent providing and/or coordinating discharge services: Date of admission: 04/17/18 17:00 Primary care physician: Sasha Celaya CNP Labs on day of discharge: Labs from last 24 hours 04/18/18 04/18/18 04/18/18 23:46 17:05 11:11 POC Glucose 96 105 H 117 H - Impressions ITS Impressions Abdomen/Pelvis CT 04/17/18 18:00 IMPRESSION: 1. Findings compatible with acute proximal sigmoid diverticulitis with fat stranding without organized phlegmon or abscess. 1. Trace pelvic fluid. 2. Other incidental findings as above. D/ / Ghazala Keller MD / Ghazala Keller MD Interpreting Provider: Ghazala Keller MD - Attending Attestation I have personally seen and examined the patient. I have reviewed pertinent labs , imaging, progress notes, including this one. I agree with the above assessment and plan and wish to include the following... please see my progress note from the same day
[2018-04-20 10:33] VITALS: BP 147/87
== END 2018-04-20 13:10 | disposition home or self-care (01) | DRG 392 ==
LOC: EMEROO 13:52 → 3ANU 13:52
PROVIDERS: ADMIT Surgery; ATTEND Surgery